=== PATIENT | male | born 1950 | race Caucasian/White ===

== ENCOUNTER 2016-10-10 10:55 | Observation (INO) | payer OTHER ==
[~2016-10-10] VITALS: Ht 180.3 cm; Wt 120.2 kg
[~2016-10-10 10:55] MED LIST: ALLERGY10 MG PO; AMARYL4 MG PO; ASPIR-LOW81 MG PO; ATORVASTATIN CA10 MG PO; COZAAR100 MG PO; GLIPIZIDE XL10 MG PO; GLUCOPHAGE500 MG PO; LISINOPRIL30 MG PO; METOPROLOL SUCC25 MG PO; OMEPRAZOLE20 MG PO; TANZEUM50 MG/0.5 SUB-Q; VENTOLIN HFA18 GM INH
[2016-10-10] MEDS ORDERED: ASPIR-TRIN325 MG PO (11:06)
--- NOTE | 2016-10-10 14:55 | NUR ---
pt arrived to room 124 at this time. alert and oriented
--- NOTE | 2016-10-10 19:25 | NUR ---
BEDSIDE REPORT RECEIVED FROM OFFGOING RN. PT SITTING UP ON EDGE OF BED. DENIES NEEDS AT THIS TIME. CALL LIGHT WITHIN REACH.
--- NOTE | 2016-10-10 19:46 | EKG ---
[facility] [address] [facility] [place] [address] Signed Sinus bradycardia with sinus arrhythmia Right bundle branch block Abnormal ECG Confirmed by THOMAS GILLIS MD ([id number]) on 10/10/2016 7:45:54 PM Electronically Signed By: THOMAS GILLIS MD 10/10/16 1946 PATIENT NAME: UNIQUE BENITEZ JR Electrocardiogram DATE OF : 52 PHYSICIAN: THOMAS GILLIS MD REPORT #: [id number] REPORT IS CONFIDENTIAL AND NOT TO BE RELEASED WITHOUT AUTHORIZATION
--- NOTE | 2016-10-10 21:07 | NUR ---
PT ASSESSMENT COMPLETED. PT SITTING UP ON EDGE OF BED WATCHING TV. DENIES PAIN. REPORTS SLIGHT SOB. LUNG SOUNDS CLEAR TO BILATERAL UPPER LUNG TEAGUE, DIMINISHED TO BILATERAL LOWER LUNG TEAGUE. SCHEDULED NEB ADMINISTERED. PT REQUESTS VEGGIE TRAY LEFT OVER FROM DINNER. DENIES OTHER NEEDS AT THIS TIME. CALL LIGHT WITHIN REACH.
--- NOTE | 2016-10-11 00:43 | NUR ---
PT RESTING IN BED, WAKES EASILY. DENIES SOB OR PAIN. PT DECLINES TO HAVE THE LIGHT TURNED OUT. CALL LIGHT WITHIN REACH. PT DENIES OTHER NEEDS.
--- NOTE | 2016-10-11 01:45 | NUR ---
PT RESTING IN BED WITH EYES CLOSED, LIGHT ON. PT WAKES EASILY. DENIES PAIN, SOB, NAUSEA. PT ASSESSMENT COMPLETED. LUNGS REMAINS CLEAR/DIM. PT DENIES NEEDS AT THIS TIME. CALL LIGHT WITHIN REACH. REINFORCED USING CALL LIGHT FOR NEEDS, PT STATES UNDERSTANDING.
--- NOTE | 2016-10-11 04:34 | NUR ---
PT ASSESSMENT COMPLETED. PT DENIES PAIN, SOB, NAUSEA. LUNGS CLEAR/DIM. SCHEDULED NEB PROVIDED. PT DENIES NEEDS AT THIS TIME. CALL LIGHT WITHIN REACH.
--- NOTE | 2016-10-11 05:45 | NUR ---
PT SLEPT WELL THIS SHIFT. REPORTS OF SOB EARLY THIS SHIFT, RESOLVED. NO REPORTS OF PAIN THIS SHIFT. TELE # 8, SINUS WILIAM 50'S-60'S. SCHEDULED NEBS, IS @ BEDSIDE. ENCOURAGE USE. PT NPO SINCE 0600 FOR STRESS TEST TODAY. IV SL. PT INDEPENDENT IN ROOM. UO QS. ACCUCHECKS, SSI.
--- NOTE | 2016-10-11 07:20 | NUR ---
PATIENT SITTING UP IN CHAIR. LINENS CHANGED. FACE AND HANDS WASHED. ORAL CARE DONE. NURSE WOULD LIKE TO WAIT ON SHOWER UNTIL PATIENT IS FINISHED WITH HIS STRESS TEST. NO OTHER NEEDS AT THIS TIME. CALL BUTTON IN REACH.
--- NOTE | 2016-10-11 07:25 | NUR ---
BEDSIDE REPORT RECEIVED FROM GAVIN FLORES. ASSUMING PATIENT CARE AT THIS TIME. PATIENT WAS UP TO BATHROOM.
--- NOTE | 2016-10-11 10:27 | NUR ---
PATIENT FOUND SITTING IN BED RESTING, DENIES CHEST AND SOB. SHIFT ASSESSMENT DONE. LUNGS CLEAR. SKIN INTACT. CBG THIS AM WAS 134 NO INSULIN COVERAGE. PATIENT HAD STRESS TEST DONE THIS AM. TOLERATED WELL.
--- NOTE | 2016-10-11 10:30 | NUR ---
PATIENT STATES THAT HE WOULD LIKE TO WAIT TO SHOWER AT HOME IF BEING DISCHARGED TODAY. SHAVED SELF. NO OTHER NEEDS AT THIS TIME.
--- NOTE | 2016-10-11 11:25 | NUR ---
DR STAHL IN TO ROOM TO SEE PATIENT AND DISCUSS PLAN OF CARE.
[2016-10-11] MEDS ORDERED: VENTOLIN HFA18 GM INH (11:30)
[2016-10-11] MEDS ORDERED: METOPROLOL SUCC25 MG PO (11:33)
--- NOTE | 2016-10-11 13:54 | NUR ---
PATIENT SITTING UP IN CHAIR WATCHING TV. FRESH ICE WATER GIVEN. NO OTHER NEEDS AT THIS TIME CALL BUTTON IN REACH.
[2016-10-11] MEDS ORDERED: ISOSORBIDE MONO30 MG PO (14:47)
[2016-10-11] MEDS ORDERED: LIPITOR40 MG PO (14:47)
--- NOTE | 2016-10-11 14:51 | NUR ---
DR. GILLIS IN TO SEE PATIENT. POST STRESS TEST DISCUSSION, MEDICATION CHANGES TO BE DONE WITH DR. GILLIS. PATIENT TO SEE DR. VARNER AT [facility] AND PATIENT TO ALSO BE REFERRED TO A IT CONSULTANT TO EVALUATE POTENTIAL HEART BLOCKAGE. PATIENT TO DISCHARGE HOME TODAY.
== END 2016-10-11 15:40 | disposition home or self-care (01) ==
LOC: ED 10:55 → MS 10:57
PROVIDERS: ADMIT Internal Medicine
DX: J20.9 Acute bronchitis, unspecified (principal); R94.39 Abnormal result of other cardiovascular function study; I10 Essential (primary) hypertension; I47.1 Supraventricular tachycardia; K21.9 Gastro-esophageal reflux disease without esophagitis; E11.9 Type 2 diabetes mellitus without complications; E78.5 Hyperlipidemia, unspecified; J30.89 Other allergic rhinitis; Z77.110 Contact with and (suspected) exposure to air pollution; Z88.6 Allergy status to analgesic agent; Z88.5 Allergy status to narcotic agent; Z88.0 Allergy status to penicillin; Z87.891 Personal history of nicotine dependence; Z87.01 Personal history of pneumonia (recurrent); Z79.84 Long term (current) use of oral hypoglycemic drugs; Z79.82 Long term (current) use of aspirin; Z79.899 Other long term (current) drug therapy
CPT/HCPCS: 36415; 71010; 80053; 84484; 85025; 85379; 93005; 93010; 94640; 94760; 96372; 96374; 96375; 99285; G0378; J1650; J1885; J2405